=== PATIENT | female | born 1965 | race Caucasian/White ===

== ENCOUNTER → 2016-06-18 | Outpatient (CLI) | payer OTHER ==
[~2016-06-18] MED LIST: INDERAL 80MG. T80 MG PO; LUTERA 0.02 MG-1 TAB PO; PERCOCET 5/3251 EACH PO
[2016-06-18 14:25] LABS: HEMOGLOBIN 14.2 g/dL (12.2-16.2); LYMPH # 1.7 K/mm3 (0.7-4.5)
[2016-06-18 14:32] LABS: BUN 16 mg/dL (7-18); GFR (ESTIMATED) 76 ML/MIN (59-)
[2016-06-19 08:45] LABS: Vitamin D, 25-Hydroxy 50.7 ng/mL (30.0-100.0)
== END ==
LOC: CARL-LAB 08:44
PROVIDERS: Nurse Practitioner Family
DX: E78.5 Hyperlipidemia, unspecified (principal); E53.8 Deficiency of other specified B group vitamins; R10.13 Epigastric pain; R14.2 Eructation; E55.9 Vitamin D deficiency, unspecified

== ENCOUNTER → 2016-06-19 | Outpatient (CLI) | payer OTHER ==
--- NOTE | 2016-06-19 11:08 | RADIOLOGY REPORT PS360 ---
UGI SERIES W/ AIR HISTORY: DYSPHAGIA, [place] COMPARISON: None FINDINGS: There is a small hiatal hernia with mild GE reflux. No ulcerated lesion or mass evident. The stomach and duodenum have an unremarkable appearance. There has been a prior cholecystectomy. FLUOROSCOPY TIME : 1 minute and 30 seconds. IMPRESSION: Small hiatal hernia with mild GE reflux otherwise negative upper GI
== END ==
LOC: RAD 08:45
DX: R10.13 Epigastric pain (principal); R14.2 Eructation; E78.5 Hyperlipidemia, unspecified; E53.8 Deficiency of other specified B group vitamins; E55.9 Vitamin D deficiency, unspecified

== ENCOUNTER → 2016-10-28 | Outpatient (CLI) | payer OTHER ==
--- NOTE | 2016-10-28 09:21 | RADIOLOGY REPORT PS360 ---
[id number] VIEWS HISTORY: RT RIB PAIN ORDERING PHYSICIAN: Justine oWod APRN PATIENT AGE: 50 years COMPARISON: None FINDINGS: A frontal view of the chest shows no acute finding. Multiple views of the right ribs were obtained. No fracture or dislocation. No lytic or blastic change. IMPRESSION: Negative RIBS. If pain persists, consider follow-up exam in 7-[address] with 3-D reformats.
--- NOTE | 2016-10-28 09:21 | RADIOLOGY REPORT PS360 ---
[id number] VIEWS HISTORY: RT RIB PAIN ORDERING PHYSICIAN: Justine Wood APRN PATIENT AGE: 50 years COMPARISON: None FINDINGS: A frontal view of the chest shows no acute finding. Multiple views of the right ribs were obtained. No fracture or dislocation. No lytic or blastic change. IMPRESSION: Negative RIBS. If pain persists, consider follow-up exam in 7-[address] with 3-D reformats.
== END ==
LOC: RAD 08:16
DX: R07.81 Pleurodynia (principal)

== ENCOUNTER → 2017-03-16 | Outpatient (CLI) | payer OTHER ==
[2017-03-17 10:37] LABS: HBsAg Screen Negative (Negative); Hep A Ab, IgM Negative (Negative); Hep B Core Ab, IgM Negative (Negative); Hep B Core Ab, Tot Negative (Negative); Hep C Virus Ab <0.1 (0.0-0.9)
== END ==
LOC: CARL-LAB 08:28
PROVIDERS: Physician Assistant Medical
DX: D69.6 Thrombocytopenia, unspecified (principal)